=== PATIENT | male | born 1965 | race Caucasian/White ===

== ENCOUNTER 2020-07-26 18:17 | Emergency (ER) | payer BC ==
--- NOTE | 2020-07-26 19:24 | XR ---
EXAMINATION TYPE: XR chest 2V DATE OF EXAM: 07/26/2020 COMPARISON: NONE HISTORY: Short of breath TECHNIQUE: 2 views FINDINGS: There is some mild linear density at the lung bases. There is some coarsening of interstiti al markings. Heart size is normal. There are no hilar masses. Pulmonary vascularity is normal. Bony t horax is intact. IMPRESSION: Mild subsegmental atelectasis in the mid and lower lung majano. Normal heart.
--- NOTE | 2020-07-26 19:55 | ED ---
SOB HPI - General Chief Complaint: Shortness of Breath Stated Complaint: +Covid, SOB Time Seen by Provider: 07/26/20 18:28 Source: patient Mode of arrival: ambulatory Limitations: no limitations - History of Present Illness Initial Comments: This 54-year-old male presents with a complaint of some shortness of breath. He states that this started approximately 9 days ago. He was tested for covert approximately 7 days ago and it came back positive approximately 5 days ago. He does complain of occasional weakness. He's had some moderate nasal congestion. There's been no loss of taste or loss of smell. He states that it seemed as though the shortness of breath was getting worse today. He states that a friend gave him a shot of dexamethasone and also put him on an inhaler. He also has access to a breathing machine but did not utilize this as of yet he also started taking zinc. He denies any leg pain or swelling. There's been no history of previous cardiac or pulmonary diseases. He has a pulse ox at home that he can monitor his oxygen status with as well. No other complaints or modifying factors. - Related Data Previous Rx's Medication Instructions Recorded Albuterol Nebulized (Conc) 2.5 mg INHALATION Q4H PRN #50 neb 07/26/20 [Ventolin Nebulized (Conc)] predniSONE [Deltasone] 20 mg PO BID #10 tab 07/26/20 Allergies Allergy/AdvReac Type Severity Reaction Status Date / Time No Known Allergies Allergy Verified 07/26/20 18:21 Review of Systems ROS Statement: Those systems with pertinent positive or pertinent negative responses have been documented in the HPI. ROS Other: All systems not noted in ROS Statement are negative. Past Medical History Past Medical History: No Reported History History of Any Multi-Drug Resistant Organisms: None Reported Past Surgical History: No Surgical Hx Reported Past Psychological History: No Psychological Hx Reported Smoking Status: Current every day smoker Past Alcohol Use History: None Reported Past Drug Use History: None Reported General Exam - General Exam Comments Initial Comments: Constitutional: Alert and oriented, no apparent distress Vitals: Reviewed, please see nursing notes HEENT: No gross trauma identified, trachea midline, no respiratory distress Neck: No tenderness, good range of motion Heart: Regular rate and rhythm without murmur Lungs: Clear to auscultation bilaterally, no wheezing rhonchi or rales Abdomen: No tenderness or peritoneal signs noted, nondistended Back: No tenderness Neurologic: No gross sensory or motor deficits identified Integumentary: No rash or change in pigmentation Psychiatric: Alert and oriented, appropriate mood and affect except for that he is mildly anxious. Limitations: no limitations Course Vital Signs 07/26/20 18:18 Temperature 100.1 F H Pulse Rate 94 Respiratory 20 Rate Blood Pressure 120/87 O2 Sat by Pulse 97 Oximetry Medical Decision Making - Medical Decision Making The patient was seen and examined. His pulse ox is ranging between 96 and 98% on room air. His x-ray of the chest does show some mild atelectasis and some occasional interstitial prominence but no definitive pneumonia. No other acute findings are noted. Overall, it is felt as though the patient does have a cold. Virus infection. He is mild to moderately affected. It is not felt as though he requires hospitalization at this time. Maximize in outpatient symp tomatology is that the main goal currently. He is agreeable with this plan and leaves in no significant distress. Disposition Clinical Impression: COVID-19 virus infection, Dyspnea Disposition: HOME SELF-CARE Condition: Good Instructions (If sedation given, give patient instructions): Coronavirus Disease 2019 (COVID-19) Additional Instructions: Please tried Mucinex DM as needed for cough and congestion. Please utilize, all and/or Motrin as needed for pain or fever. Prescriptions: predniSONE [Deltasone] 20 mg PO BID #10 tab Albuterol Nebulized (Conc) [Ventolin Nebulized (Conc)] 2.5 mg INHALATION Q4H PRN #50 neb PRN Reason: Shortness Of Breath Is patient prescribed a controlled substance at d/c from ED?: No Referrals: None,Stated [Primary Care Provider] - 1-2 days Time of Disposition: 19:51
[2020-07-26 20:17] VITALS: BP 140/89; PULSE 90; RESP 22; TEMP 99.1
== END 2020-07-26 20:04 | disposition home or self-care (01) ==
LOC: EC 18:17
DX: U07.1 COVID-19 (principal); J98.11 Atelectasis; F17.200 Nicotine dependence, unspecified, uncomplicated
CPT/HCPCS: 71046; 99284

== ENCOUNTER 2020-07-29 15:51 | Inpatient (IN) | payer BC ==
[2020-07-29] MEDS ORDERED: ALBUTEROL HFA INHALER INHALATION PRN (16:26)
[2020-07-29] MEDS ORDERED: ALBUTEROL HFA INHALER INHALATION STA (16:26)
--- NOTE | 2020-07-29 16:29 | ED ---
URI HPI - General Chief Complaint: Upper Respiratory Infection Stated Complaint: SOB Time Seen by Provider: 07/29/20 15:53 Source: patient, RN notes reviewed Mode of arrival: ambulatory Limitations: no limitations - History of Present Illness Initial Comments: Patient is a pleasant 54-year-old male presenting to the emergency department with difficulty in breathing. Onset of symptoms was around 10 or so days ago. Patient did have positive cocaine test. Patient was in the emergency Department a couple of days ago however feels his breathing is even worsening. Patient has occasional dry cough. Patient does have nasal congestion. Patient did have fevers however those have resolved. No nausea vomiting or diarrhea. No history of chronic lung problems. - Related Data Home Medications Medication Instructions Recorded Confirmed Albuterol Nebulized [Ventolin 2.5 mg INHALATION Q4H PRN 07/29/20 07/29/20 Nebulized] Allergies Allergy/AdvReac Type Severity Reaction Status Date / Time No Known Allergies Allergy Verified 07/29/20 16:25 Review of Systems ROS Statement: Those systems with pertinent positive or pertinent negative responses have been documented in the HPI. ROS Other: All systems not noted in ROS Statement are negative. Constitutional: Denies: fever Respiratory: Reports: as per HPI, cough, dyspnea Cardiovascular: Denies: chest pain Endocrine: Reports: fatigue Gastrointestinal: Denies: abdominal pain Genitourinary: Denies: urgency Musculoskeletal: Denies: back pain Skin: Denies: rash Neurological: Denies: weakness Past Medical History Past Medical History: No Reported History History of Any Multi-Drug Resistant Organisms: None Reported Past Surgical History: No Surgical Hx Reported Past Psychological History: Anxiety Smoking Status: Never smoker Past Alcohol Use History: None Reported Past Drug Use History: None Reported General Exam Limitations: no limitations General appearance: alert, in no apparent distress Head exam: Present: normocephalic Eye exam: Present: normal appearance Neck exam: Present: normal inspection Respiratory exam: Present: normal lung sounds bilaterally Cardiovascular Exam: Present: tachycardia, normal heart sounds GI/Abdominal exam: Present: soft. Absent: tenderness Extremities exam: Present: normal inspection. Absent: pedal edema, calf tenderness Neurological exam: Present: alert Psychiatric exam: Present: normal affect, normal mood Skin exam: Present: normal color Course Vital Signs 07/29/20 07/29/20 07/29/20 15:53 15:59 16:58 Temperature 98.7 F Pulse Rate 107 H 86 Respiratory 20 20 20 Rate Blood Pressure 152/107 134/88 O2 Sat by Pulse 99 99 Oximetry 07/29/20 18:00 Temperature Pulse Rate 99 Respiratory 22 Rate Blood Pressure 137/87 O2 Sat by Pulse 98 Oximetry - Reevaluation(s) Reevaluation #1: 07/29/20 16:53 EKG shows sinus tachycardia with a rate of 112. AK 146. QRS 90. QT 338. QTC 461. Normal axis. Q wave in lead III. No acute ST change. Medical Decision Making - Medical Decision Making Patient reevaluated and still feeling short of breath. Patient was 88-91 O2 sat on room air when previously evaluated. Patient is agreeable to admission. Case was discussed with Dr. Pop, who will admit for hospital call. He does agree with ordering computed tomography scan. - Lab Data Result diagrams: 07/29/20 16:50 07/29/20 16:50 Lab Results 07/29/20 07/29/20 07/29/20 Range/Units 16:50 16:50 16:50 WBC 10.3 (3.8-10.6) k/uL RBC 5.52 (4.30-5.90) m/uL Hgb 17.7 H (13.0-17.5) gm/dL Hct 50.0 (39.0-53.0) % MCV 90.6 (80.0-100.0) fL MCH 32.2 (25.0-35.0) pg MCHC 35.5 (31.0-37.0) g/dL RDW 12.6 (11.5-15.5) % Plt Count 362 (150-450) k/uL MPV 7.1 Neutrophils % 90 % Lymphocytes % 3 % Monocytes % 5 % Eosinophils % 1 % Basophils % 1 % Neutrophils # 9.3 H (1.3-7.7) k/uL Lymphocytes # 0.3 L (1.0-4.8) k/uL Monocytes # 0.5 (0-1.0) k/uL Eosinophils # 0.1 (0-0.7) k/uL Basophils # 0.1 (0-0.2) k/uL PT 9.8 (9.0-12.0) sec INR 0.9 (<1.2) APTT 23.2 (22.0-30.0) sec D-Dimer 1.61 H (<0.60) mg/L FEU Sodium 135 L (137-145) mmol/L Potassium 3.9 (3.5-5.1) mmol/L Chloride 95 L (98-107) mmol/L Carbon Dioxide 27 (22-30) mmol/L Anion Gap 13 mmol/L BUN 7 L (9-20) mg/dL Creatinine 0.66 (0.66-1.25) mg/dL Est GFR (CKD-EPI)AfAm >90 (>60 ml/min/1.73 sqM) Est GFR (CKD-EPI)NonAf >90 (>60 ml/min/1.73 sqM) Glucose 117 H (74-99) mg/dL Plasma Lactic Acid Alex (0.7-2.0) mmol/L Calcium 9.1 (8.4-10.2) mg/dL Magnesium 2.1 (1.6-2.3) mg/dL Total Bilirubin 1.0 (0.2-1.3) mg/dL AST 51 (17-59) U/L ALT 57 H (4-49) U/L Alkaline Phosphatase 90 (38-126) U/L Lactate Dehydrogenase 760 H (313-618) U/L C-Reactive Protein 88.7 H (<10.0) mg/L Total Protein 7.9 (6.3-8.2) g/dL Albumin 4.1 (3.5-5.0) g/dL 07/29/20 Range/Units 16:50 WBC (3.8-10.6) k/uL RBC (4.30-5.90) m/uL Hgb (13.0-17.5) gm/dL Hct (39.0-53.0) % MCV (80.0-100.0) fL MCH (25.0-35.0) pg MCHC (31.0-37.0) g/dL RDW (11.5-15.5) % Plt Count (150-450) k/uL MPV Neutrophils % % Lymphocytes % % Monocytes % % Eosinophils % % Basophils % % Neutrophils # (1.3-7.7) k/uL Lymphocytes # (1.0-4.8) k/uL Monocytes # (0-1.0) k/uL Eosinophils # (0-0.7) k/uL Basophils # (0-0.2) k/uL PT (9.0-12.0) sec INR (<1.2) APTT (22.0-30.0) sec D-Dimer (<0.60) mg/L FEU Sodium (137-145) mmol/L Potassium (3.5-5.1) mmol/L Chloride (98-107) mmol/L Carbon Dioxide (22-30) mmol/L Anion Gap mmol/L BUN (9-20) mg/dL Creatinine (0.66-1.25) mg/dL Est GFR (CKD-EPI)AfAm (>60 ml/min/1.73 sqM) Est GFR (CKD-EPI)NonAf (>60 ml/min/1.73 sqM) Glucose (74-99) mg/dL Plasma Lactic Acid Alex 2.5 H* (0.7-2.0) mmol/L Calcium (8.4-10.2) mg/dL Magnesium (1.6-2.3) mg/dL Total Bilirubin (0.2-1.3) mg/dL AST (17-59) U/L ALT (4-49) U/L Alkaline Phosphatase (38-126) U/L Lactate Dehydrogenase (313-618) U/L C-Reactive Protein (<10.0) mg/L Total Protein (6.3-8.2) g/dL Albumin (3.5-5.0) g/dL - Radiology Data Radiology results: image reviewed (Chest x-ray does show some bilateral patchy pulmonary infiltrates. Worsen from previous.) Disposition Clinical Impression: Pneumonia due to COVID-19 virus Disposition: ADMITTED IP TO THIS HOSP Is patient prescribed a controlled substance at d/c from ED?: No Referrals: None,Stated [Primary Care Provider] - 1-2 days Decision Time: 18:26
[2020-07-29 16:58] LABS: Basophils # (A) 0.1 k/uL (0-0.2); Basophils % (A) 1 %; Eosinophils # (A) 0.1 k/uL (0-0.7); Eosinophils % (A) 1 %; HGB 17.7 gm/dL (13.0-17.5); Lymphocytes # (A) 0.3 k/uL (1.0-4.8); Lymphocytes % (A) 3 %; MCH 32.2 pg (25.0-35.0); MCHC 35.5 g/dL (31.0-37.0); MCV 90.6 fL (80.0-100.0); Mean Platelet Volume 7.1; Monocytes # (A) 0.5 k/uL (0-1.0); Monocytes % (A) 5 %; Neutrophils # (A) 9.3 k/uL (1.3-7.7); Neutrophils % (A) 90 %; Platelet Count 362 k/uL (150-450); RBC 5.52 m/uL (4.30-5.90); RDW 12.6 % (11.5-15.5); WBC 10.3 k/uL (3.8-10.6)
[2020-07-29 17:10] LABS: ALT 57 U/L (4-49); AST 51 U/L (17-59); African American GFR (CKD) >90 (>60 ml/min/1.73 sqM); Albumin 4.1 g/dL (3.5-5.0); Alkaline Phosphatase 90 U/L (38-126); Anion Gap 13 mmol/L; Blood Urea Nitrogen 7 mg/dL (9-20); C Reactive Protein 88.7 mg/L (<10.0); Calcium 9.1 mg/dL (8.4-10.2); Carbon Dioxide 27 mmol/L (22-30); Chloride 95 mmol/L (98-107); Glucose 117 mg/dL (74-99); INR 0.9 (<1.2); LDH 760 U/L (313-618); Magnesium 2.1 mg/dL (1.6-2.3); Non-African American GFR(CKD) >90 (>60 ml/min/1.73 sqM); Partial Thromboplastin Time 23.2 sec (22.0-30.0); Potassium 3.9 mmol/L (3.5-5.1); Prothrombin Time 9.8 sec (9.0-12.0); Sodium 135 mmol/L (137-145); Total Protein 7.9 g/dL (6.3-8.2)
[2020-07-29 17:22] LABS: D-Dimer 1.61 mg/L FEU (<0.60)
[2020-07-29] MEDS ORDERED: LORazepam 1 MG TAB PO STA (17:36)
--- NOTE | 2020-07-29 17:47 | XR ---
EXAMINATION TYPE: XR chest 1V portable DATE OF EXAM: 07/29/2020 COMPARISON: 07/26/2020 HISTORY: Short of breath TECHNIQUE: FINDINGS: There is some mild infiltrate and atelectasis at the lung bases. There is no heart failure. Heart size is normal. The bony thorax is intact. IMPRESSION: Lower lobe bilateral pulmonary mild infiltrates and atelectasis increased compared to rec ent exam. Normal heart.
[2020-07-29] MEDS ORDERED: NALOXONE 0.4 MG/ML 1 ML VIAL IV PRN (18:28)
[2020-07-29] MEDS ORDERED: ACETAMINOPHEN TAB 325 MG TAB PO PRN (18:28)
[2020-07-29] MEDS ORDERED: ENOXAPARIN 40 MG/0.4 ML SYRINGE SQ SCH (18:30)
[2020-07-29] MEDS: ASCORBIC ACID 500 MG TAB PO SCH (18:49)
[2020-07-29] MEDS: CHOLECALCIFEROL 25 MCG (1000 IU) TABLET PO SCH (18:49)
[2020-07-29] MEDS: ZINC SULFATE 220 MG CAP PO SCH (18:49)
[2020-07-29] MEDS: DEXAMETHASONE SOD PHOSPHATE 10 MG/ML 1 ML VIAL IV SCH (18:50)
[2020-07-29] MEDS ORDERED: HYDROcodone/APAP 5-325MG 1 EACH TAB PO PRN (18:54)
[2020-07-29] MEDS ORDERED: ALPRAZolam 0.25 MG TAB PO PRN (18:54)
[2020-07-29] MEDS ORDERED: HYDROmorphone 0.5 MG/0.5 ML SYRINGE IVP PRN (18:54)
[2020-07-29] MEDS: SODIUM CHLORIDE 0.9% 1,000 ML IV SCH (18:54)
[2020-07-29] MEDS ORDERED: SODIUM CHLORIDE 0.9% 500 ML 500 ML IV ONE (19:05)
--- NOTE | 2020-07-29 19:09 | CT ---
EXAMINATION TYPE: CT angio chest DATE OF EXAM: 07/29/2020 COMPARISON: None HISTORY: Shortness of breath. CT DLP: 437.6 mGycm Automated exposure control for dose reduction was used. CONTRAST: Performed with IV Contrast, patient injected with 100 mL of Isovue 300. There are 3-D post processed images. There is some patchy reticular and airspace type infiltrate in the periphery of both lungs involving upper and lower lobes. There is some patchy atelectasis at the lung bases. There is fatty infiltratio n of the liver. Heart size is fairly normal. There is no pericardial effusion. There are no hilar masses. There is no mediastinal adenopathy. Thoracic aorta is intact. There is no aneurysm or dissection. There are a few bronchial lymph nodes that measure up to 1 cm. There is normal contrast opacification of the pulmonary arteries. There are no filling defects. The b ban thorax is intact. IMPRESSION: No evidence of pulmonary embolism. Patchy bilateral peripheral bronchopneumonia. Mild patchy atelectasis at the lung bases. Fatty infilt ration of the liver.
[2020-07-29 19:15] LABS: Appearance,Urine Clear (Clear); Bilirubin,Urine Negative (Negative); Blood,Urine Negative (Negative); Color,Urine Yellow; Glucose,Urine (UA) Negative (Negative); Ketones,Urine 1+ (Negative); Leukocyte Esterase,Urine Negative (Negative); Nitrite,Urine Negative (Negative); Protein,Urine Trace (Negative); Specific Gravity,Urine 1.011 (1.001-1.035); Urobilinogen,Urine <2.0 mg/dL (<2.0)
[2020-07-29 19:24] LABS: Amphetamine Screen,Urine Not Detected (NotDetected); Barbiturate Screen,Urine Not Detected (NotDetected); Benzodiazepines Screen,Urine Not Detected (NotDetected); Cocaine Screen,Urine Not Detected (NotDetected); Methadone Screen, Urine Not Detected (NotDetected); Opiate Screen,Urine Not Detected (NotDetected); Oxycodone Screen, Urine Not Detected (NotDetected); Phencyclidine Screen,Urine Not Detected (NotDetected); Tricyclic Antidepressant,Urine Not Detected (NotDetected); Urn Cannabinoid Scrn Not Detected (NotDetected)
[2020-07-29] MEDS ORDERED: ALBUTEROL HFA INHALER INHALATION SCH (20:00)
--- NOTE | 2020-07-29 20:08 | HP ---
HISTORY AND PHYSICAL CHIEF COMPLAINT: Shortness of breath and anxiety. HISTORY OF PRESENT ILLNESS: This 54-year-old gentleman with a past medical history of anxiety and no other cardiovascular illness, not being followed by any primary physician in the outpatient setting, was having symptoms for the last several days. The patient presented on June 25 with shortness of breath and cough, and the patient apparently had tested positive for COVID about 7 days prior to that admission. During that time the patient was given symptomatic treatment and patient was discharged. The patient apparently was using a friend's inhaler and the patient was also taking zinc. Currently the patient is complaining of increased shortness of breath. The patient has some anxiety reactions and he came to [facility] and has been admitted for further evaluation and treatment. His breathing is dry and the patient has some nasal congestion and a dry cough also. The chest x-ray showed more developing pneumonia on the right side and the patient was admitted for further evaluation and treatment. His pulse ox was 99% on room air. The blood pressure is elevated at 150/107. There is no history any fever or rigors or chills. No history of headache, loss of consciousness, seizures at this time. PAST MEDICAL HISTORY: Anxiety. HOME MEDICATIONS: Albuterol p.r.n. nebulizer. ALLERGIES: NONE. FAMILY HISTORY: No history of heart disease or strokes in the family. SOCIAL HISTORY: No history of smoking. No history of alcohol intake. REVIEW OF SYSTEMS: ENT: No diminished hearing. No diminished vision. CARDIOVASCULAR SYSTEM: No angina, palpitations. RESPIRATORY SYSTEM: As mentioned earlier. GI: No nausea, vomiting. : No dysuria or retention. NERVOUS SYSTEM: No numbness, weakness. ALLERGY/IMMUNOLOGY: No asthma, hayfever. MUSCULOSKELETAL: As mentioned earlier. HEMATOLOGY/ONCOLOGY: No history of anemia. ENDOCRINE: No history of diabetes, hypothyroidism. CONSTITUTIONAL: As mentioned earlier. DERMATOLOGY: Negative. RHEUMATOLOGY: Negative. PSYCHIATRY: As mentioned earlier. PHYSICAL EXAMINATION: Patient alert and oriented x3. Pulse 86, blood pressure 134/88, respiration 20, temperature 98.7, pulse ox 99% on 2 L. HEENT: Conjunctivae normal. Oral mucosa moist. NECK: No jugular venous distention. No carotid bruit. No lymph node enlargement. CARDIOVASCULAR SYSTEM: S1, S2 muffled. RESPIRATORY SYSTEM: Breath sounds diminished at the bases. Bilateral scattered rhonchi and crackles. ABDOMEN: Soft, non-tender. LEGS: No edema. No swelling. NERVOUS SYSTEM: Higher functions as mentioned earlier. Moves all 4 limbs. No focal motor or sensory deficit. LYMPHATICS: No lymph node palpable in neck, axillae or groin. SKIN: No ulcer, rash, bleeding. JOINTS: No active deforming arthropathy. LABS: Labs at this time show WBC 10.6, hemoglobin 17.7. D-dimer is 1.6. Sodium 135. Lactic acid 2.5, ALT is 57, LDH is 760. CRP is 88.7. ASSESSMENT: 1. Acute COVID-19 bilateral interstitial pneumonia with significant shortness of breath. 2. Elevated lactic acid; possibly sepsis. 3. Hyponatremia. 4. Elevated LDH. 5. Increased CRP. 6. Increased ALT. 7. Elevated D-dimer. 8. History of anxiety. RECOMMENDATIONS AND DISCUSSION: In this 54-year-old gentleman who presented with multiple complex medical issues, we will monitor the patient closely, continue the current medications, continue symptomatic treatment. I would recommend a CT angio of the chest to rule out the possibility of acute pulmonary embolism. Otherwise, I would also recommend pulmonary and infectious disease evaluations. The patient seems to be out of the window for remdesivir, but I will initiate Lovenox and dexamethasone and other medications for COVID. Prognosis is guarded because of multiple complex medical issues. Further recommendations to follow. I also recommend that the patient follow up with a primary physician closely after discharge. MMODL / IJN: [id number] /
[2020-07-30 01:00] LABS: Ferritin 1538.7 ng/mL (22.0-322.0)
[2020-07-30] MEDS: ALBUTEROL HFA INHALER INHALATION SCH ×4 (07:37→20:05)
[2020-07-30] MEDS: ENOXAPARIN 40 MG/0.4 ML SYRINGE SQ SCH ×2 (08:33→20:14)
[2020-07-30] MEDS: DEXAMETHASONE SOD PHOSPHATE 10 MG/ML 1 ML VIAL IV SCH (08:33)
[2020-07-30] MEDS: ASCORBIC ACID 500 MG TAB PO SCH ×2 (08:34→20:14)
[2020-07-30] MEDS: PANTOPRAZOLE 40 MG TABLET PO SCH (08:34)
[2020-07-30] MEDS: CHOLECALCIFEROL 25 MCG (1000 IU) TABLET PO SCH (08:34)
[2020-07-30] MEDS: ZINC SULFATE 220 MG CAP PO SCH (08:34)
[2020-07-30] MEDS: MULTIVITAMINS, THERA 1 EACH TAB PO SCH (08:34)
[2020-07-30] MEDS: THIAMINE 100 MG TAB PO SCH (08:35)
[2020-07-30] MEDS: FOLIC ACID 1 MG TAB PO SCH (08:35)
[2020-07-30] MEDS: SODIUM CHLORIDE 0.9% 1,000 ML IV SCH (08:37)
[2020-07-30 11:24] LABS: Basophils # (A) 0.01 X 10*3/uL (0.00-0.10); Basophils % (A) 0.1 %; Eosinophils # (A) 0 X 10*3/uL (0.04-0.35); Eosinophils % (A) 0 %; HCT 47.5 % (39.6-50.0); HGB 16.2 g/dL (13.0-17.0); Lymphocytes # (A) 0.46 X 10*3/uL (0.90-5.00); Lymphocytes % (A) 6.3 %; MCHC 34.1 g/dL (32.0-37.0); Mean Platelet Volume 10.5 fL (9.5-12.2); Monocytes # (A) 0.47 X 10*3/uL (0.20-1.00); Monocytes % (A) 6.5 %; Neutrophils # (A) 6.25 X 10*3/uL (1.80-7.70); Neutrophils % (A) 86.1 %; Platelet Count 385 X 10*3/uL (140-440); RBC 5.22 X 10*6/uL (4.40-5.60); RDW 12.1 % (11.5-14.5); WBC 7.26 X 10*3/uL (4.50-10.00)
[2020-07-30 11:56] LABS: Anion Gap 10.6 mmol/L (4.00-12.00); BUN/Creat Ratio 18.33 Ratio (12.00-20.00); Carbon Dioxide 24.4 mmol/L (21.6-31.8); Non-African American GFR(CKD) 115.6 (60.0-200.0)
--- NOTE | 2020-07-30 15:28 | P.CNPUL ---
History of Present Illness Consult date: 07/30/20 Requesting physician: Michelle Pop Reason for consult: dyspnea, cough, hypoxemia, pneumonia, abnormal CXR/CT Chief complaint: Shortness of breath and cough. History of present illness: 54-year-old male, who currently does not see a doctor, and takes no medications at home. He states that more than 2 weeks ago, he was tested positive for COVID 19. The patient apparently came to the emergency room and was discharged home. The patient was using updrafts at home with albuterol. It was not his machine but rather his sister's machine. He received albuterol apparently from the ER physician. He denies a prior history of hypertension, diabetes, hyperlipidemia, and does not smoke cigarettes. He has no history of any lung issues. He came to the emergency room on July 29, because of worsening shortness of breath. He also had pain in his chest when he took a deep breath and he also complained of cough. The cough was mostly dry. Though he did not mention it to me, apparently the patient did test positive for cocaine. His chest x-ray showed lower lobe bilateral pulmonary infiltrates and atelectasis. A CAT scan was negative for pulmonary most him but did show patchy bilateral peripheral bronchopneumonia. His coronavirus test here was positive. His drug screen on this admission was negative. White count 7.26, hemoglobin 16.2, hematocrit 47.5, platelet count 385,000. Sodium was 137, potassium 5, chlorides 102, CO2 24, anion gap 10.6, BUN 11, creatinine 0.6, and glucose 143. Urine was negative. Review of Systems REVIEW OF SYSTEMS: CONSTITUTIONAL: Slight fever. NEUROLOGIC: [ Negative.] HEENT: [ Negative.] CARDIAC: [Negative.] PULMONARY: Shortness of breath, cough, chest tightness. GI: [Negative.] : [Negative.] RHEUMATOLOGIC: [ Negative.] IMMUNOLOGIC: [ Negative.] ENDOCRINE: [Negative. ] DERMATOLOGIC: [Negative.] Past Medical History Past Medical History: No Reported History History of Any Multi-Drug Resistant Organisms: None Reported Past Surgical History: No Surgical Hx Reported Past Anesthesia/Blood Transfusion Reactions: No Reported Reaction Past Psychological History: Anxiety Smoking Status: Never smoker Past Alcohol Use History: None Reported Past Drug Use History: None Reported - Past Family History Father History Unknown: Yes Medications and Allergies Home Medications Medication Instructions Recorded Confirmed Type Albuterol Nebulized [Ventolin 2.5 mg INHALATION Q4H PRN 07/29/20 07/29/20 History Nebulized] Allergies Allergy/AdvReac Type Severity Reaction Status Date / Time No Known Allergies Allergy Verified 07/29/20 16:25 Physical Exam Osteopathic Statement: *. No significant issues noted on an osteopathic structural exam other than those noted in the History and Physical/Consult. Vitals: Vital Signs Temp Pulse Pulse Pulse Resp BP BP 07/30/20 10:04 98.5 F 73 18 119/78 07/30/20 06:09 98.0 F 75 19 130/85 07/30/20 02:00 97.8 F 73 18 126/86 07/29/20 19:50 24 07/29/20 19:25 99.0 F 107 H 20 131/80 07/29/20 19:00 98.9 F 101 H 24 138/98 07/29/20 18:00 99 22 137/87 07/29/20 16:58 86 20 134/88 07/29/20 15:59 20 07/29/20 15:53 98.7 F 107 H 20 152/107 Pulse Ox 07/30/20 10:04 96 07/30/20 06:09 94 L 07/30/20 02:00 95 07/29/20 19:50 07/29/20 19:25 98 07/29/20 19:00 100 07/29/20 18:00 98 07/29/20 16:58 99 07/29/20 15:59 07/29/20 15:53 99 Intake and Output 07/30/20 07/30/20 07/30/20 06:59 14:59 22:59 Other: # Voids 3 No acute distress, oriented 3. Patient currently not on any supplemental oxygen. Room air saturation 96%. HEENT examination is grossly unremarkable. Mucous membranes are moist. No oral lesions. Neck supple. Full range of motion. No adenopathy thyromegaly or neck vein distention. Cardiovascular examination reveals regular rhythm rate. S1-S2 normal. No S3 or S4. No discernible murmur noted. Heart rate 88 bpm. Lungs reveal bilateral rhonchi. No wheezes or crackles. Breath sounds equal bilaterally. The patient does cough on deep inspiration. Abdomen soft bowel sounds are heard. No masses or tenderness. Extremities are intact. No cyanosis clubbing or edema. Skin is without rash or lesion. Neurologic examination is brief but nonfocal. Results - Laboratory Findings CBC and BMP: 07/30/20 06:47 07/30/20 06:47 PT/INR, D-dimer PT 9.8 sec (9.0-12.0) 07/29/20 16:50 INR 0.9 (<1.2) 07/29/20 16:50 D-Dimer 1.61 mg/L FEU (<0.60) H 07/29/20 16:50 Abnormal lab findings: Abnormal Labs 07/29/20 07/29/20 07/29/20 16:50 16:50 16:50 Hgb 17.7 H Immature Gran # Neutrophils # 9.3 H Lymphocytes # 0.3 L Eosinophils # D-Dimer 1.61 H Sodium 135 L Chloride 95 L BUN 7 L Glucose 117 H Plasma Lactic Acid Alex Ferritin 1538.7 H ALT 57 H Lactate Dehydrogenase 760 H C-Reactive Protein 88.7 H Procalcitonin Urine Protein Urine Ketones Coronavirus (PCR) 07/29/20 07/29/20 07/29/20 16:50 16:50 18:55 Hgb Immature Gran # Neutrophils # Lymphocytes # Eosinophils # D-Dimer Sodium Chloride BUN Glucose Plasma Lactic Acid Alex 2.5 H* Ferritin ALT Lactate Dehydrogenase C-Reactive Protein Procalcitonin 0.14 H Urine Protein Urine Ketones Coronavirus (PCR) Detected A 07/29/20 07/30/20 07/30/20 19:02 06:47 06:47 Hgb Immature Gran # 0.07 H Neutrophils # Lymphocytes # 0.46 L Eosinophils # 0 L D-Dimer Sodium Chloride BUN Glucose 143 H Plasma Lactic Acid Alex Ferritin ALT Lactate Dehydrogenase C-Reactive Protein Procalcitonin Urine Protein Trace H Urine Ketones 1+ H Coronavirus (PCR) - Diagnostic Findings Chest x-ray: image reviewed CT scan - chest: image reviewed Assessment and Plan Assessment: COVID 19 pneumonia. Mild/moderate shortness of breath, without significant hypoxemia, secondary to COVID 19 pneumonia. Plan: Plan dated July 30, 2020. Currently, the patient's on an albuterol inhaler. In addition, the patient's on vitamin C, Decadron, zinc, and folic acid. I don't see vitamin D3. I will add that. Currently, the patient's saturations are excellent on room air. I'm not sure exactly why this patient was admitted. He probably could've been treated at home with Decadron, vitamin C, vitamin D3, and zinc. Additional recommendations and suggestions are forthcoming. Time with Patient: Greater than 30
--- NOTE | 2020-07-30 17:03 | PN ---
PROGRESS NOTE DATE OF SERVICE: 07/30/2020 This 54-year-old gentleman who was admitted with shortness of breath and COVID-19 bilateral interstitial pneumonia is being closely monitored at this time. The patient also had possible sepsis, present on admission. The pulse ox is being well maintained and CBC is noted. Glucose 143. No chest pain. No palpitations. No fever. Past medical history reviewed. REVIEW OF SYSTEMS: CARDIOVASCULAR SYSTEM: No angina, palpitations. RESPIRATORY SYSTEM: As mentioned earlier. GI: No nausea, vomiting. : No dysuria or retention. NERVOUS SYSTEM: No numbness, weakness. CURRENT MEDICATIONS: Reviewed. They include Tylenol, Combes, Ventolin, vitamin C, Decadron. Doses are reviewed. PHYSICAL EXAMINATION: Patient is alert and oriented x3. The pulse is 73, blood pressure 119/78, respiration 18, temperature 98.4, pulse ox 96% on room. HEENT: Conjunctivae normal. NECK: No jugular venous distention. CARDIOVASCULAR SYSTEM: S1, S2 muffled. RESPIRATORY SYSTEM: Breath sounds diminished at the bases. Bilateral scattered rhonchi and crackles. ABDOMEN: Soft, non-tender. LEGS: No edema. No swelling. NERVOUS SYSTEM: No focal deficit. LABS: Eosinophils are zero. Monocytes are low. Glucose 143. COVID-19 is positive. ASSESSMENT: 1. Acute COVID-19 bilateral interstitial pneumonia with significant shortness of breath. 2. Elevated lactic acid, possible sepsis, present on admission. 3. Hyponatremia. 4. Elevated random glucose. 5. Elevated LDH. 6. Anxiety state. 7. Increased CRP. 8. Increased ALT. 9. Elevated D-dimer without any evidence of pulmonary embolism. RECOMMENDATIONS AND DISCUSSION: In this 54-year-old gentleman who presented with multiple complex medical issues, we will monitor the patient closely, continue the current medications, continue with symptomatic treatment, continue with the Lovenox, continue with the dexamethasone, continue the rest of the medications. Continue zinc, vitamin supplementation. Prognosis guarded because of multiple complex medical issues. Further recommendations to follow. MMODL / IJN: [id number] /
[2020-07-30] MEDS ORDERED: MELATONIN 5 MG TABLET PO SCH (21:00)
--- NOTE | 2020-07-30 22:48 | CONS ---
CONSULTATION DATE OF SERVICE: 07/30/2020. REASON FOR CONSULTATION: COVID-19 infection. HISTORY OF PRESENT ILLNESS: The patient is a 54-year-old male who apparently was diagnosed with Covid 19 about 2 weeks ago. This patient apparently had symptoms mostly URI at that point and the patient has been seen previously in the ER and was given updraft treatments with albuterol. The patient is now presenting back to the hospital for evaluation of increasing shortness of breath and pain has been getting worse for the last 3-4 days. The patient has shortness of breath on minimal exertion. Not at rest. The patient also had a cough which is mild in intensity. No sputum . The patient denies having any pleuritic chest pain. No nausea, no vomiting. No abdominal pain or any diarrhea. On presentation to the hospital, the patient was afebrile. The patient is currently sating 99-96 percent on room air. The patient did have a normal white count with no lymphopenia. D-dimer was mildly elevated. The patient's creatinine was normal. was elevated. Ferritin and the CRP elevated. Procalcitonin only 0.14. Lutein is negative. Urine drug screen was negative. Waters PCR positive. The patient did have a chest x-ray with lower lobe bilateral pulmonary mild infiltrate, atelectasis, increase compared to recent normal chest. The patient also had a CT angiogram of the chest that was negative for PE. Did show patchy bilateral peripheral bronchial pneumonia. The patient has been admitted to the hospital. Infectious Disease was consulted for further management. REVIEW OF SYSTEMS: Positive points have been mentioned in HPI. Rest of the systems are negative. PAST MEDICAL HISTORY: Significant for anxiety. PAST SURGICAL HISTORY: No surgeries. SOCIAL HISTORY: Denies smoking, drinking or drug use. FAMILY HISTORY: No pertinent findings noticed. ALLERGIES: No known drug allergies. MEDICATIONS: Include the patient is currently on zinc, vitamin B1, IV fluids, Protonix, Narcan, Theragran, Melatonin, Dilaudid, folic acid, dexamethasone, Lovenox, Habitrol and Xanax. PHYSICAL EXAMINATION: Blood pressure 108/74 with a pulse of 69, temperature 97.8. He is 94% on room air. General description: The patient is a middle-aged male lying in bed in no distress. No tachypnea or accessory muscles of respiration use. HEENT: Examination shows no pallor or scleral icterus. Oral mucous membranes dry. NECK: Trachea central. No thyromegaly. Lungs: Unlabored breathing, decreased intensity in breath sounds. No wheeze or crackles. Heart S1, S2. Regular rate and rhythm. ABDOMEN: Soft, no tenderness. No guarding. No rigidity. EXTREMITIES: No edema of the feet. SKIN examination: No rash or mass palpable. NEUROLOGICALLY: The patient is awake, alert, oriented times three. Mood and affect normal. LABS: Hemoglobin 16.1, white count 7.26 with lymphopenia. D-dimer is 1.61, creatinine 0.66. Lactic acid elevated. Inflammatory markers are elevated. DIAGNOSTIC IMPRESSION AND PLAN: Patient admitted to the hospital with increasing shortness of breath, likely secondary to acute COVID-19 infection. Symptoms have been going on for more than 2 weeks and seemed to have failed to respond to outpatient symptomatic treatment. The patient is currently afebrile and non hypoxic and out of the therapeutic window for the any benefit from Remdesivir. PLAN: 1. Patient to continue with the Lovenox and dexamethasone, zinc and ascorbic acid. 2. Droplet isolation and respiratory support. 3. No need for systemic antibiotic therapy. 4. We will follow on clinical condition and further adjust medication if needed. Thank you for this consultation. Will follow this patient along with you. MMMARBELLAL / IJN: [id number] /
[2020-07-31 02:57] VITALS: RESP 18
[2020-07-31] MEDS: ALBUTEROL HFA INHALER INHALATION SCH ×2 (07:58→11:11)
[2020-07-31] MEDS ORDERED: FAMOTIDINE 20 MG TAB PO SCH (09:00)
[2020-07-31] MEDS ORDERED: dexAMETHasone 2 MG TAB PO SCH (09:00)
[2020-07-31] MEDS: CHOLECALCIFEROL 25 MCG (1000 IU) TABLET PO SCH (09:11)
[2020-07-31] MEDS: ENOXAPARIN 40 MG/0.4 ML SYRINGE SQ SCH (09:11)
[2020-07-31] MEDS: PANTOPRAZOLE 40 MG TABLET PO SCH (09:11)
[2020-07-31] MEDS: ASCORBIC ACID 500 MG TAB PO SCH (09:11)
[2020-07-31] MEDS: ZINC SULFATE 220 MG CAP PO SCH (09:11)
[2020-07-31 09:33] LABS: HCT 44.7 % (39.6-50.0); MCH 30.7 pg (27.0-32.0); MCHC 33.6 g/dL (32.0-37.0); MCV 91.4 fL (80.0-97.0); Mean Platelet Volume 9.9 fL (9.5-12.2); Platelet Count 488 X 10*3/uL (140-440); RBC 4.89 X 10*6/uL (4.40-5.60); WBC 12.71 X 10*3/uL (4.50-10.00)
[2020-07-31 09:55] LABS: Anion Gap 8.5 mmol/L (4.00-12.00); BUN/Creat Ratio 22.5 Ratio (12.00-20.00); Calcium 8.6 mg/dL (8.7-10.3); Carbon Dioxide 23.5 mmol/L (21.6-31.8); Non-African American GFR(CKD) 102.7 (60.0-200.0); Potassium 4.4 mmol/L (3.5-5.5)
[2020-07-31 10:24] LABS: Basophils # (A) 0.01 X 10*3/uL (0.00-0.10); Basophils % (A) 0.1 %; Eosinophils # (A) 0 X 10*3/uL (0.04-0.35); Eosinophils % (A) 0 %; Lymphocytes # (A) 0.77 X 10*3/uL (0.90-5.00); Lymphocytes % (A) 6.1 %; Monocytes # (A) 1.56 X 10*3/uL (0.20-1.00); Monocytes % (A) 12.3 %; Neutrophils # (A) 10.28 X 10*3/uL (1.80-7.70); Neutrophils % (A) 80.8 %
[2020-07-31 10:29] VITALS: BP 101/68; PULSE 71; TEMP 97.9
[2020-07-31] MEDS: THIAMINE 100 MG TAB PO SCH (11:58)
[2020-07-31] MEDS: FOLIC ACID 1 MG TAB PO SCH (11:58)
[2020-07-31] MEDS: MULTIVITAMINS, THERA 1 EACH TAB PO SCH (11:58)
--- NOTE | 2020-07-31 12:35 | P.PN ---
Subjective Progress Note Date: 07/31/20 54-year-old male, who currently does not see a doctor, and takes no medications at home. He states that more than 2 weeks ago, he was tested positive for COVID 19. The patient apparently came to the emergency room and was discharged home. The patient was using updrafts at home with albuterol. It was not his machine but rather his sister's machine. He received albuterol apparently from the ER physician. He denies a prior history of hypertension, diabetes, hyperlipidemia, and does not smoke cigarettes. He has no history of any lung issues. He came to the emergency room on July 29, because of worsening shortness of breath. He also had pain in his chest when he took a deep breath and he also complained of cough. The cough was mostly dry. Though he did not mention it to me, apparently the patient did test positive for cocaine. His chest x-ray showed lower lobe bilateral pulmonary infiltrates and atelectasis. A CAT scan was negative for pulmonary most him but did show patchy bilateral peripheral bronchopneumonia. His coronavirus test here was positive. His drug screen on this admission was negative. White count 7.26, hemoglobin 16.2, hematocrit 47.5, platelet count 385,000. Sodium was 137, potassium 5, chlorides 102, CO2 24, anion gap 10.6, BUN 11, creatinine 0.6, and glucose 143. Urine was negative. On July patient seen in follow-up on medical floor, he is resting comfortably in bed, breathing comfortably, in no acute distress, room air pulse ox is 95%, hemodynamically stable, no fever or chills, chest pain, or palpitations, he continues on oral Decadron, and vitamins, and Lovenox 40 mg twice daily, today's labs have been reviewed, white count is 12.7, hemoglobin is 15, his d-dimer 2 days ago was 1.61, electrolytes and renal profile are unremarkable, hence overnight, increase activity as tolerated, from pulmonary perspective he could go home today Objective - Vital Signs Vital signs: Vital Signs Temp 97.9 F 07/31/20 10:00 Pulse 71 07/31/20 10:00 Resp 18 07/31/20 10:00 BP 101/68 07/31/20 10:00 Pulse Ox 95 07/31/20 10:00 Intake & Output 07/30/20 07/31/20 07/31/20 18:59 06:59 18:59 Other: Voiding Method Toilet Toilet # Voids 2 2 - Exam GENERAL EXAM: Alert, active, very pleasant, 54-year-old white male, on room air, the pulse ox 95% comfortable in no apparent distress. HEAD: Normocephalic/atraumatic. EYES: Normal reaction of pupils, equal size. Conjunctiva pink, sclera white. NOSE: Clear with pink turbinates. THROAT: No erythema or exudates. NECK: No masses, no JVD, no thyroid enlargement, no adenopathy. CHEST: No chest wall deformity. Symmetrical expansion. LUNGS: Equal air entry with no crackles, wheeze, rhonchi or dullness. CVS: Regular rate and rhythm, normal S1 and S2, no gallops, no murmurs, no rubs ABDOMEN: Soft, nontender. No hepatosplenomegaly, normal bowel sounds, no guarding or rigidity. EXTREMITIES: No clubbing, no edema, no cyanosis, 2+ pulses and upper and lower extremities. MUSCULOSKELETAL: Muscle strength and tone normal. SPINE: No scoliosis or deformity SKIN: No rashes CENTRAL NERVOUS SYSTEM: Alert and oriented -3. No focal deficits, tone is normal in all 4 extremities. PSYCHIATRIC: Alert and oriented -3. Appropriate affect. Intact judgment and insight. - Labs CBC & Chem 7: 07/31/20 06:03 07/31/20 06:03 Labs: Abnormal Lab Results - Last 24 Hours (Table) 07/31/20 07/31/20 Range/Units 06:03 06:03 WBC 12.71 H (4.50-10.00) X 10*3/uL Plt Count 488 H (140-440) X 10*3/uL Immature Gran # 0.09 H (0.00-0.04) X 10*3/uL Neutrophils # 10.28 H (1.80-7.70) X 10*3/uL Lymphocytes # 0.77 L (0.90-5.00) X 10*3/uL Monocytes # 1.56 H (0.20-1.00) X 10*3/uL Eosinophils # 0 L (0.04-0.35) X 10*3/uL BUN/Creatinine Ratio 22.50 H (12.00-20.00) Ratio Glucose 156 H (70-110) mg/dL Calcium 8.6 L (8.7-10.3) mg/dL Microbiology - Last 24 Hours (Table) 07/29/20 16:31 Blood Culture - Preliminary Blood No Growth after 24 hours 07/29/20 16:46 Blood Culture - Preliminary Blood No Growth after 24 hours Assessment and Plan Plan: Assessment: COVID 19 pneumonia. Mild/moderate shortness of breath, without significant hypoxemia, secondary to COVID 19 pneumonia. Plan: No acute events overnight, patient is on room air, no fever or chills, breathing comfortably, patient can be considered for discharge home today he can finish ten-day course of oral Decadron. Her grandmother PAVER LAYER statement I performed a history & physical examination of the patient and discussed their management with my nurse practitioner, Beatriz Wilson. I reviewed the nurse practitioner's note and agree with the documented findings and plan of care. Lung sounds are positive for diminished breath sounds. The findings and the impression was discussed with the patient. I attest to the documentation by the nurse practitioner. Time with Patient: Less than 30
--- NOTE | 2020-07-31 14:35 | PN ---
PROGRESS NOTE DATE OF SERVICE: 07/31/2020 REASON FOR FOLLOWUP: COVID-19 infection. INTERVAL HISTORY: The patient is currently afebrile. The patient denies having any chest pain or shortness of breath. He did have a cough with occasional sputum. No nausea, no vomiting. No abdominal pain, no diarrhea. PHYSICAL EXAMINATION: Blood pressure 101/68 with a pulse of 71, temperature 97.9. He is 95% on room air. General description is a middle-aged male lying in bed in no distress. RESPIRATORY SYSTEM: Unlabored breathing, decreased intensity of breath sounds. No wheeze. HEART: S1, S2. Regular rate and rhythm. ABDOMEN: Soft, no tenderness. LABS: Hemoglobin is 15, white count 12.71. BUN of 18, creatinine 0.8. DIAGNOSTIC IMPRESSION AND PLAN: Patient admitted to the hospital with acute COVID-19 infection. This patient currently afebrile on room air. The patient will continue with dexamethasone, Lovenox, zinc and respiratory support and monitor his clinical course closely. Continue with supportive care. MMMARBELLAL / BREN: [id number] /
--- NOTE | 2020-07-31 15:27 | P.DS ---
Providers Date of admission: 07/29/20 18:28 Expected date of discharge: 07/31/20 Attending physician: Michelle Pop Consults: 07/30/20 11:18 Consult Physician Routine Consulting Provider: Carlos Bridges Consult Reason/Comments: covid Do you want consulting provider notified?: Yes Consult Physician Routine Consulting Provider: Srinivas Andres Consult Reason/Comments: covid Do you want consulting provider notified?: Yes Primary care physician: Stated None Hospital Course: Final Diagnosis Acute Covid 19 bilateral interstitial pneumonia with significant shortness of breath Elevated lactic acid, possible sepsis, present on admission Hyponatremia Elevated random glucose elevated LDH Anxiety state increased CRP increased ALT Elevated d-dimer without any evidence of pulmonary embolism Full code Discharge disposition Patient is being discharged in a stable condition with guarded prognosis to home. Patient will follow-up with Dr. Jackson in the outpatient setting upon dis charge. Patient will be going home with daughter. Patient to continue on oral antibiotics in the form of Ceftin 500 mg twice daily for the next 5 days to complete the course. Patient will also continue dexamethasone along with vitamin and zinc supplements. Total time taken is greater than 35 minutes. Hospital course This is a 54-year-old male who was recently admitted with shortness of breath and Covid 19 bilateral interstitial pneumonia and was being closely monitored. Patient was seen and evaluated by pulmonary along with infectious disease. Patient will continue with albuterol inhaler along with dexamethasone, vitamin C and E, zinc supplements in the outpatient setting. Patient provided resources to Dr. Jackson for primary care follow-up as he does not currently have a primary care provider. Prescriptions provided as well for repeat CBC, CMP, d-dimer in 2-3 days and recommended repeat chest x-ray in 2 weeks with close follow-up. Patient was also given an incentive spirometer and instructed to use at least 10 times every hour while awake. Patient will be going home with family and treatment plan and medications have been discussed in detail with family member Lillian today. Per Lillian, she will be working on establishing with a primary care provider for him and resources were provided. Currently no reports of chest pain, shortness of breath, or palpitations. Patient is afebrile. No reports of nausea or vomiting and patient is tolerating diet. Patient is instructed to follow-up with primary care provider upon discharge and resources provided. Patient will be discharged home today. Guarded prognosis On exam vital signs are stable. Cardio S1, S2 are muffled. Respiratory system shows diminished breath sounds at the bases with no wheezing or rhonchi noted. Abdomen is soft and nontender. Nervous system shows no focal deficits. Please refer to medication reconciliation sheet for a list of medications. Patient Condition at Discharge: Stable Plan - Discharge Summary Discharge Rx Participant: No New Discharge Prescriptions: New Aspirin 81 mg PO DAILY 14 Days #14 chewable Cefuroxime Axetil [Ceftin] 500 mg PO BID 5 Days #10 tab Dexamethasone [Decadron] 6 mg PO DAILY 8 Days #8 tablet Folic Acid 1 mg PO DAILY@1200 30 Days #30 tab Multivitamins, Thera [Multivitamin (formulary)] 1 each PO DAILY@1200 30 Days #30 tab Zinc Sulfate [Orazinc] 220 mg PO DAILY 30 Days #30 cap Pantoprazole [Protonix] 40 mg PO AC-BRKFST 30 Days #30 tablet. Acetaminophen Tab [Tylenol] 650 mg PO Q6HR PRN #30 tab PRN Reason: Mild Pain Or Fever > 100.5 Albuterol Inhaler [Ventolin Hfa Inhaler] 2 puff INHALATION RT-QID 30 Days #1 puff Albuterol Inhaler [Ventolin Hfa Inhaler] 2 puff INHALATION RT-Q6H PRN puff PRN Reason: Shortness Of Breath Or Wheezing Thiamine [Vitamin B-1] 100 mg PO DAILY@1200 30 Days #30 tab Ascorbic Acid [Vitamin C] 500 mg PO BID 30 Days #60 tab Cholecalciferol [Vitamin D3 (25 Mcg = 1000 Iu)] 125 mcg PO DAILY 30 Days #30 tablet ALPRAZolam [Xanax] 0.25 mg PO TID PRN #10 tab PRN Reason: Anxiety Continue Albuterol Nebulized [Ventolin Nebulized] 2.5 mg INHALATION Q4H PRN PRN Reason: Shortness Of Breath Discharge Medication List Albuterol Nebulized [Ventolin Nebulized] 2.5 mg INHALATION Q4H PRN 07/29/20 [History] ALPRAZolam [Xanax] 0.25 mg PO TID PRN #10 tab 07/31/20 [Rx] Acetaminophen Tab [Tylenol] 650 mg PO Q6HR PRN #30 tab 07/31/20 [Rx] Albuterol Inhaler [Ventolin Hfa Inhaler] 2 puff INHALATION RT-Q6H PRN puff 07/31/20 [Rx] Albuterol Inhaler [Ventolin Hfa Inhaler] 2 puff INHALATION RT-QID 30 Days #1 puff 07/31/20 [Rx] Ascorbic Acid [Vitamin C] 500 mg PO BID 30 Days #60 tab 07/31/20 [Rx] Aspirin 81 mg PO DAILY 14 Days #14 chewable 07/31/20 [Rx] Cefuroxime Axetil [Ceftin] 500 mg PO BID 5 Days #10 tab 07/31/20 [Rx] Cholecalciferol [Vitamin D3 (25 Mcg = 1000 Iu)] 125 mcg PO DAILY 30 Days #30 tablet 07/31/20 [Rx] Dexamethasone [Decadron] 6 mg PO DAILY 8 Days #8 tablet 07/31/20 [Rx] Folic Acid 1 mg PO DAILY@1200 30 Days #30 tab 07/31/20 [Rx] Multivitamins, Thera [Multivitamin (formulary)] 1 each PO DAILY@1200 30 Days #30 tab 07/31/20 [Rx] Pantoprazole [Protonix] 40 mg PO AC-BRKFST 30 Days #30 tablet.dr 07/31/20 [Rx] Thiamine [Vitamin B-1] 100 mg PO DAILY@1200 30 Days #30 tab 07/31/20 [Rx] Zinc Sulfate [Orazinc] 220 mg PO DAILY 30 Days #30 cap 07/31/20 [Rx] Follow up Appointment(s)/Referral(s): Sheeba Jackson MD [REFERRING] - 1 Week (Please call office when cleared from COVID) Ambulatory/Diagnostic Orders: Complete Blood Count w/diff [LAB.AMB] Time Frame: 2 Days, Location: None Selected Comprehensive Metabolic Panel [LAB.AMB] Time Frame: 2 Days, Location: None Selected Activity/Diet/Wound Care/Special Instructions: Activity Limited until follow-up Follow up with primary care provider and establish with one upon discharge Continue with antibiotics for 5 days then may discontinue Continue with prednisone taper Continue with incentive spirometer at least 10 times every hour while awake Repeat labs in 2-3 days Continue with Medications as prescribed Encourage fluids and rest Continue current diet Continue with aspirin daily for 2 weeks Discharge Disposition: HOME SELF-CARE
== END 2020-07-31 14:40 | disposition home or self-care (01) | DRG 871 ==
LOC: EC 15:51 → 4SSUR 18:28
PROVIDERS: ADMIT Hospitalist; ATTEND Hospitalist
DX: A41.89 Other specified sepsis (principal); U07.1 COVID-19; J12.82 Pneumonia due to coronavirus disease 2019; E87.1 Hypo-osmolality and hyponatremia; R79.89 Other specified abnormal findings of blood chemistry; R74.02 Elevation of levels of lactic acid dehydrogenase [LDH]; F41.9 Anxiety disorder, unspecified
CPT/HCPCS: 36415; 71045; 71275; 80048; 80053; 80306; 81003; 82728; 83605; 83615; 83735; 84145; 85025; 85379; 85610; 85730; 86140; 87040; 87635; 93005; 94640; 96372; 96374; 99285